=== PATIENT | male | born 1965 | race African-American/Black ===

== ENCOUNTER 2018-02-05 06:21 | Inpatient (IN) | payer OTHER, MEDICAID ==
[~2018-02-05] VITALS: Ht 180.3 cm; Wt 79.4 kg
--- NOTE | ~2018-02-05 | PROC ---
[address] [address] PROCEDURE REPORT Name: WESLY ARMANDO Room: [address] IN M.R.#: [id number] Admission: 02/05/18 Attend Phys: Derrick Gonzales MD Discharge: Date of : 63 Report #: [id number] THIS REPORT FOR: //name// For GI report, please see the Provation report in Perceptive 7 content. By: 06Medical Records Staff GÓMEZ /AKIN
--- NOTE | ~2018-02-05 | PROC ---
[address] [address] PROCEDURE REPORT Name: WESLY ARMANDO Room: [address] IN .R.#: [id number] Admission: 02/05/18 Attend Phys: Derrick Gonzales MD Discharge: 02/07/18 Date of : 63 Report #: [id number] THIS REPORT FOR: //name// For GI report, see the Provation report in Perceptive 7 content. By: 1358Medical Records Staff GÓMEZ /AKIN
[~2018-02-05 06:21] MED LIST: ASPIR 8181 M1 PO; ATIVAN0.5 MG; ATIVAN0.5 MG PO; BENICAR20 MG PO; CLEOCIN HCL300 MG PO; COLACE100 MG PO; CYMBALTA30 MG PO; CYPROHEPTADINE 44 MG PO; DILAUDID 2 MG TA2 MG; DILAUDID 2 MG TA2 MG PO; DILAUDID 4 MG TA4 M1 PO; DIPHENHIST50 MG PO; FENTANYL 1100 MCG/HR TP; FENTANYL1 EAC1; FOLIC ACID1 MG PO; MINIPRESS2 MG PO; NORCO 5-325 TA1 EACH PO; PERCOCET 10-321 EAC1 PO; PHENERGAN 25 MG25 M1 PO; PHENERGAN25 M1 RC; PRAZOSIN 1 MG CA1 M1 PO; PROTONIX40 M2 PO; REMERON 30 MG T30 M1 PO; REMERON15 MG PO; SEROQUEL 100 M100 M1 PO; SEROQUEL 50 MG50 MG PO; TRAZODONE HCL100 MG PO; TYLENOL325 MG PO; ULTRAM 50MG TAB50 MG PO; VALIUM5 MG PO; VENLAFAXINE HCL75 MG PO
[2018-02-05 06:24] VITALS: BP 130/89
[2018-02-05] MEDS ORDERED: DILAUDID 2 MG TA2 MG PO (06:29)
[2018-02-05] MEDS ORDERED: BENADRYL25 MG PO (06:29)
[2018-02-05] MEDS ORDERED: ASPIRIN325 (06:29)
[2018-02-05] MEDS ORDERED: PHENERGAN 25 MG25 M1 PO (06:30)
[2018-02-05] MEDS ORDERED: MELATONIN1 MG PO (06:31)
[2018-02-05] MEDS ORDERED: PAXIL10 MG PO (06:31)
[2018-02-05 07:17] LABS: ABSOLUTE BASOPHILS 0.1 thou/uL (0.0-0.2); ABSOLUTE EOSINOPHILS 0.2 thou/uL (0.0-0.7); ABSOLUTE LYMPHOCYTES 1.1 thou/uL (0.8-5.3); ABSOLUTE MONOCYTES 0.5 thou/uL (0.0-1.2); ABSOLUTE NEUTROPHILS 4.3 thou/uL (1.6-8.1); BASOPHILS 1.2 %; HEMATOCRIT 30.8 % (42.0-52.0); HEMOGLOBIN 10.4 gm/dL (14.0-18.0); LYMPHOCYTES 18.3 %; MCH 28.3 pg (26.0-34.0); MCHC 33.7 g/dL (28.0-37.0); MCV 83.8 fL (80.0-100.0); MONOCYTES 7.6 %; MPV 8.4 fl. (7.2-11.1); NUCLEATED RBCS 0 /100WBC; PLATELET COUNT* 166 thou/uL (150-400); POLYS 68.9 %; RBC 3.67 mil/uL (4.50-6.00); RDW-CV 17.2 % (10.5-14.5); WBC 6.2 thou/uL (4.0-11.0)
[2018-02-05 07:25] LABS: ANION GAP 9 mmol/L (7-16); BUN 26 mg/dL (7-18); CALCIUM 9.1 mg/dL (8.5-10.1); CHLORIDE 106 mmol/L (98-107); CO2 27 mmol/L (21-32); CREATININE 0.9 mg/dL (0.6-1.3); GLUCOSE 103 mg/dL (70-99); POTASSIUM 3.2 mmol/L (3.5-5.1); SODIUM 142 mmol/L (136-145)
[2018-02-05 07:26] LABS: APTT 27.5 Seconds (25.0-31.3)
[2018-02-05 07:45] LABS: ALBUMIN 3.7 g/dL (3.4-5.0); ALKALINE PHOSPHATASE 62 U/L (46-116); CK-MB MASS < 0.5 ng/mL (<0.5-3.6); LIPASE 193 U/L (73-393); NT-PRO BRAIN NAT PEPTIDE 26 pg/mL (<300); SGOT 11 U/L (15-37); SGPT 17 U/L (30-65); TOTAL BILIRUBIN 0.3 mg/dL (<0.1-1.0); TOTAL PROTEIN 7.7 g/dL (6.4-8.2); TROPONIN-I LEVEL <0.06 ng/mL (<0.06)
[2018-02-05 08:41] VITALS: BP 127/89
[2018-02-05 11:15] LABS: URINE BILIRUBIN NEGATIVE (Negative); URINE BLOOD NEGATIVE (Negative); URINE CLARITY CLEAR; URINE COLOR YELLOW; URINE GLUCOSE-RANDOM NEGATIVE (Negative); URINE KETONES NEGATIVE (Negative); URINE LEUKOCYTES-REFLEX NEGATIVE (Negative); URINE NITRITE-REFLEX NEGATIVE (Negative); URINE PROTEIN NEGATIVE (Negative); URINE SPECIFIC GRAVITY 1.025 (1.005-1.030)
[2018-02-05 11:22] LABS: AMP/METHAMP Negative (Negative); BARBITURATES Negative (Negative); BENZODIAZEPINES Negative (Negative); COCAINE Negative (Negative); METHADONE Negative (Negative); OPIATES POSITIVE (Negative); PCP Negative (Negative); THC POSITIVE (Negative)
[2018-02-05 12:41] LABS: % SATURATION 18 % (20-39); IRON 75 ug/dL (50-175)
--- NOTE | 2018-02-05 13:04 | NUR ---
VSS, ASSUMED CARE OF PT FROM ER, ASSESSMENT PERFORMED AND CHARTED, FALL PRECAUTIONS IN PLACE AND CALL LIGHT IN REACH. PT IS A&O4 AND ON RA AND TRACING ST ON THE MONITOR, PT STATES PAIN IN LEGS, HAS G TUBE IN ABDOMINE, PT IS UP WITH ONE AND CANE, WILL FOLLOW WITH PLAN OF CARE. ,
--- NOTE | 2018-02-05 13:07 | 2DMMODE ---
[place] [address] 2 D/M-MODE ECHOCARDIOGRAM Name: WESLY ARMANDO Room: [address] IN [facility]#: [id number] Admission: 02/05/18 Attend Phys: Derrick Gonzales, Discharge: Date of : 63 Date of Service: 02/05/18 1307 Report #: [id number] THIS REPORT FOR: //name// APPROVED REPORT Study performed: 02/05/2018 11:21:07 EXAM: Comprehensive 2D, Doppler, and color-flow Echocardiogram Patient Location: In-Patient Room #: [facility] Status: routine BSA: 2.02 HR: 80 bpm BP: 127/89 mmHg Rhythm: NSR Other Information Study Quality: Good Indications Dyspnea 2D Dimensions LVEF(%): 74.41 (>50%) IVSd: 11.45 (7-11mm) LVOT Diam: 22.48 (18-24mm) LVDd: 40.29 mm PWd: 9.10 (7-11mm) Ascending Ao: 31.73 (22-36mm) LVDs: 23.05 (25-40mm) Aortic Root: 31.75 mm Magaña's LVEF: 74.41 % Volumes Left Atrial Volume (Systole) LA ESV Index: 12.60 mL/m2 Aortic Valve AoV Peak Kalin.: 1.14 m/s AO Peak Gr.: 5.22 mmHg LVOT Max P.23 mmHg AO Mean Gr.: 2.80 mmHg LVOT Mean P.09 mmHg LVOT Max V: 1.03 m/s AO V2 VTI: 19.38 cm LVOT Mean V: 0.66 m/s MADISYN (VTI): 3.60 cm2 LVOT V1 VTI: 17.58 cm Mitral Valve E/A Ratio: 1.12 [place] [address] 2 D/M-MODE ECHOCARDIOGRAM Name: WESLY ARMANDO Room: [address] IN .R.#: [id number] Admission: 02/05/18 Attend Phys: Derrick Gonzales, Discharge: Date of : 63 Date of Service: 02/05/18 1307 Report #: [id number] MV Decel. Time: 271.16 ms MV E Max Kalin.: 0.68 m/s MV PHT: 78.64 ms MVA (PHT): 2.80 cm2 TDI E/Lateral E': 4.86 E/Medial E': 6.18 Medial E' Kalin.: 0.11 m/s Lateral E' Kalin.: 0.14 m/s Pulmonary Valve PV Peak Kalin.: 1.00 m/s PV Peak Gr.: 4.02 mmHg Tricuspid Valve TR Peak Gr.: 20.67 mmHg RVSP: 25.00 mmHg Left Ventricle The left ventricle is normal size. There is normal LV segmental wall motion. There is normal left ventricular wall thickness. Left ventricular systolic function is normal. The left ventricular ejection fraction is within the normal range. LVEF is 60%. The left ventricular diastolic function is normal. Right Ventricle The right ventricle is normal size. The right ventricular systolic function is normal. Atria The left atrium size is normal. The right atrium size is normal. Aortic Valve The aortic valve is normal in structure. No aortic regurgitation is present. There is no aortic valvular stenosis. Mitral Valve The mitral valve is normal in structure. There is no mitral valve regurgitation noted. No evidence of mitral valve stenosis. Tricuspid Valve The tricuspid valve is normal in structure. Trace tricuspid regurgitation. The RVSP is ___25____ mmHg. Mild tricuspid regurgitation. Pulmonic Valve The pulmonary valve is normal in structure. [place] [address] 2 D/M-MODE ECHOCARDIOGRAM Name: WESLY ARMANDO Room: [address] IN M.R.#: [id number] Admission: 02/05/18 Attend Phys: Derrick Gonzales, Discharge: Date of : 63 Date of Service: 02/05/18 1307 Report #: [id number] valvular regurgitation. Great Vessels The aortic root is normal in size. IVC is normal in size and collapses with >50% inspiration Pericardium There is no pericardial effusion. <Conclusion> The left ventricle is normal size. There is normal left ventricular wall thickness. Left ventricular systolic function is normal. The left ventricular ejection fraction is within the normal range. LVEF is 60%. The left ventricular diastolic function is normal. The right ventricle is normal size. The left atrium size is normal. The aortic valve is normal in structure. The mitral valve is normal in structure. The tricuspid valve is normal in structure. The RVSP is ___25____ mmHg. Mild tricuspid regurgitation. IVC is normal in size and collapses with >50% inspiration There is no pericardial effusion. There is normal LV segmental wall motion. <ELECTRONICALLY SIGNED> By: Yandel Padron MD, FACC 02/05/18 1307 1307 130 Yandel Padron MD, FACC /INF
[2018-02-05 15:54] VITALS: BP 107/70
--- NOTE | 2018-02-05 16:18 | EKG ---
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 : 1965 Requested By: Agustin Navarrete Order Number: [id number] MD: Yandel Padron Measurements Intervals [place] Rate: 116 P: 0 UT: 156 QRS: 40 QRSD: 100 T: 48 QT: 340 QTc: 473 Interpretive Statements Sinus tachycardia Borderline repolarization abnormality Artifact in lead(s) II,III,aVF,V1,V2,V3,V4,V5,V6 No previous ECG available for comparison Electronically Signed On 02-05-2018 16:18:05 CDT by Yandel Padron [email or web address] <ELECTRONICALLY SIGNED> By: Yandel Padron MD, [facility] 02/05/18 1618 7 7 Yandel Padron MD, [facility] /EPI
--- NOTE | 2018-02-05 18:02 | NUR ---
VSS, PT IS PROGRESSING TOWARDS GOAL, PT IS UP WITH ONE AND IS TRACING SR ON THE MONITOR ON RA AND A&O4, PT HAS PAIN IN LEGS AND IS 6 ON 0-10 SCALE, WILL FOLLOW WITH PLAN OF CARE, HOURLY ROUNDS COMPLETED.
[2018-02-05 20:00] VITALS: BP 103/40
[2018-02-06] VITALS (9 sets, daily range): BP systolic 98–129; BP diastolic 55–91
--- NOTE | 2018-02-06 01:12 | NUR ---
PATIENT HAS RECEIVED IV FENTANYL AT 2000 AND 2300 ORDERED, EVERY 3 HOURS. BOTH TIMES PATIENT CALLED OUT AN HOUR BEFORE NEXT DOSE DUE. OFFERED DILAUDID WITH BENADRYL BOTH PATIENT REFUSES. ASKED CHARGE NURSE TO ENCOURAGE PATIENT TO TAKE DILAUDID PO UNTIL NEXT DOSE OF FENTANYL, WHEN SHE APPROACH PATIENT IN ROOM HE WAS SLEEPING. WILL CONT. TO MONITOR.
[2018-02-06 05:29] LABS: HEMATOCRIT 27.3 % (42.0-52.0); HEMOGLOBIN 9.3 gm/dL (14.0-18.0); MCH 28.8 pg (26.0-34.0); MCHC 34.2 g/dL (28.0-37.0); MCV 84.1 fL (80.0-100.0); RBC 3.24 mil/uL (4.50-6.00); RDW-CV 17.5 % (10.5-14.5); WBC 3.7 thou/uL (4.0-11.0)
[2018-02-06 05:34] LABS: CALCIUM 8.1 mg/dL (8.5-10.1); CREATININE 0.6 mg/dL (0.6-1.3); POTASSIUM 3.4 mmol/L (3.5-5.1)
--- NOTE | 2018-02-06 09:24 | NUR ---
ASSUMED CARE OF PT THIS AM AROUND 0715- FACING MACHINE OPERATOR IN PLACE ORDERED, TRACING SR- UPON ASSESSMENT PT NOTED TO BE RESTING IN BED, EYES CLOSED- PT A&O X4- CONTINENT OF BOWEL AND BLADDER- LIMITED/SBA WITH TRANSFERS FOR SAFETY- LCTA, RESP EVEN AND UN-LABORED- VSS, O2 SAT 99% ON RA- ABDOMEN SOFT/FLAT/NON-TENDER, BS X4 QUADS- J-TUBE NOTED WITH BINDER IN PLACE-LAST BM REPORTED 02/05/18- PORT O CATH NOTED TO LEFT UPPER MID CHEST, IVF INFUSING ORDERED- K+ NOTED TO BE 3.4 THIS AM, 1ST DOSE PER REPLACEMENT GIVEN THIS AM AT 0825 WITH SECOND DOSE TO FOLLOW- PT COMPLAINS OF PAIN 8/10 GENERALIZED, PRN FENT GIVEN THIS AM AT 0819, PT REPORTS MEDICATION TO NOT BE EFFECTIVE- RELAXATION, QUIET ENVIRONMENT AND DEEP BREATHING ENCOURAGED- PT CURRENLTY NPO FOR PLANNED EGD THIS AM KWITH J-TUBE REMOVAL- PT UPDATED ON PLANS WITH CONCEKNT OBTAINED FOR PROCEDURE THIS AM- ASPIRIN HELD THIS AM FOR PLANNED PROCEDURE- CALL LIGHT AND PERSOANL BELONGINGS WITH IN REACH- HOURLY ROUNDS IN PLACE R/T SAFETY/NEEDS- ALL NEEDS MET AT THIS TIME-WCTM
--- NOTE | 2018-02-06 14:18 | NUR ---
CM SPOKE TO THE PATIENT TO DISCUSS HOME SITUATION, DISCHARGE PLANNING, AND TO INFORM OF THE ROLE OF CM. PATIENT ALERT, ORIENTED, AND INDEPENDENT WITH ADL'S. PATIENT RESIDES AT HOME WITH DTR. PATIENT OWNS 0 DME. PATIENT HAS NO HX OF HH OR SNF, AND PLANS TO RETURN HOME AT D/C. CM WILL REMAIN AVAILABLE TO ASSIST AND FOLLOW NEEDED.
--- NOTE | 2018-02-06 17:53 | NUR ---
PATIENT PARTIALLY PROGRESSING TOWARDS GOALS. HE CONTINUES TO DENY ANY SOA. IVF INFUSING. HE COMPLAINS OF 'ALL OVER' PAIN THAT HE GETS PARTIAL PAIN RELIEF FROM WITH IS SCHEDULED AND PRN PAIN MEDICATION. PATIENT RETURNED TO ROOM POST EGD AND ASKED FOR IV PAIN MEDICATION. PACU REPORTED PATIENT RECEIVED IV FENTANYL 45 MIN PRIOR TO RETURNING TO THE FLOOR. EXPLAINED TO PATIENT WE COULD DO ORAL DILAUDID FIRST TO SEE IF THAT WOULD HELP CONTROL THE PAIN AND REEVALUATE AFTER THE REASSESSMENT. PATIENT WAS INITIALLY UPSET WHEN HE COULD NOT GET IV FENTANYL UPON RETURNING TO HIS ROOM AND ARGUED WITH HIS NURSE QUOC UNTIL HE REQUESTED A NEW RN AND ASKED THAT SHE NOT RETURN TO HIS ROOM. IVF INFUSING. TOLERATING HIS DIET WELL WITHOUT NAUSEA OR VOMITING. PATIENT CONTENT AT THIS TIME BUT IS ASKING WHEN HIS NEXT DOSE OF PAIN MEDICATION IS 'DUE'. PATIENT VOIDING CLEAR YELLOW URINE PER URINAL. HOURLY ROUNDING CHARTED. CALL LIGHT WITHIN REACH. WILL CONTINUE TO MONITOR.
--- NOTE | 2018-02-06 17:56 | NUR ---
PT RETURNED FROM PACU POST EGD VIA W/C AT 1345- VS 98.9 18 125/84 66 100% ON RA- PT REPORTED TO HAVE RECIVED BETWEEN 1240 AND 1300 A TOTAL OF 100 OPF FENT IN POST OP- PT REQUEST MORE DENT UPON RETURNING- PT EDUCATED ON PHYSICIANS RECOMMENDATION OF USING HOME DILAUDID WITH ONLY FENT FOR BREAKTHROUGH PAIN PHYSICAIN HAD EDUCATED HIM ABOUT IN AM- PT BECAME VERY ARGUMENATIVE, AND WOULD NOT LISTEN TO TEACHING- PT STATES "I MIGHT WELL LEAVE IF YOU NOT GOING TO TAKE CARE OF ME"- PT EDUCATED THAT IT WAS NOT TIME FOR FENT DUE TO JUST RECIEVING AND FENT IN PACU- PT STATES "I AM DONE TALKING TO YOU'- NOTIFIED OF PT RESITMENT AND WANTING FENT WITHOUT TRYING DILAUDID- INSTRUCTIONS GIVEN FOR PT TO TRY PO DILAUID BEFORE FENT AGAIN WITH NO CAHNGES TO BE MADE- PT EDUCATED ON PHYSICIANS UPDATE- PT STILL RESITANT TO TEACHING AND REFUSED TO ALLOW THIS NURSE TO GIVE ANY FURTHER MEDICATIONS- PT STATES "I AM NOT TAKING ANYTHING FROM YOU"- AT THIS POINT ANOTHER NURSE ASSIGNED TO PT CARE- [facility]
[2018-02-07] VITALS (7 sets, daily range): BP systolic 99–123; BP diastolic 64–85
--- NOTE | 2018-02-07 02:14 | NUR ---
TOOK PT INTO CARE AT 1930. PT ABLE TO MAKE NEEDS KNOWN, WATCHING CLOCK, CALLING OUT FOR PAIN MEDS. CAME IN WITH SICKLE CELL CRISIS. ASSESSMENT COMPLETED CHARTED. C/O PAIN 7-9 THROUGHOUT THE NIGHT. PORTACATH ON LEFT SIDE OF CHEST RUNNING AT 150ML/HR NS. PT WATCHING TV AND FALLING IN AND OUT OF SLEEP. WILL CONTINUE WITH PLAN OF CARE.
[2018-02-07 05:05] LABS: HEMOGLOBIN 9.3 gm/dL (14.0-18.0)
[2018-02-07] MEDS ORDERED: ADULT LOW DOSE81 MG PO (08:50)
[2018-02-07] MEDS ORDERED: PANTOPRAZOLE SO40 M1 PO (08:50)
--- NOTE | 2018-02-07 11:04 | NUR ---
Consult received to schedule PCP and pain mgmt appt. MARK scheduled a PCP appt for March 10 at 9:[address] Tammy Coker at [facility], CM updated Pt's dc summary. CM contacted [facility] re: pain mgmt appt, clinic requested that CM fax clinical info, Drs will review and contact Pt if they determine that he needs to be seen, MARK faxed records from this hospital stay and from [facility], p:[phone] f:[phone], updated nurse.
--- NOTE | 2018-02-07 15:00 | NUR ---
VSS, ASSUMED CARE IN THE AM, ASSESSMENT PERFORMED AND CHARTED, FALL PRECAUTIONS IN PLACE AND CALL LIGHT IN REACH, PT IS A&O4 AND ON RA AND STATES PAIN IN ABDOMIN, PT GOAL IS TO D/C J-TUBE AND D/C HOME. WILL FOLLOW WITH PLAN OF CARE AND HORLY ROUNDS. PT IS RA AND TRACING SR ON MONITOR, AND UP WITH ONE AND CANE AT THIS TIME 1723, I HAVE RECIEVED D/C ORDERS, PT HAD J-TUBE PULLED AND IS TO D/C TONIGHT, PT HAS LEFT CHEST PORT CATH AND WILL NEED TO BE D/C AT D/C. HOURLY ROUNDS COMPLETED, AND REPORT GIVEN TO RN
--- NOTE | 2018-02-07 15:04 | S ---
[place] [address] SURGICAL PATH RPT PROCEDURE Name: WESLY ARMANDO Room: [address] IN ..#: [id number] Admission: 02/05/18 Date of : 63 Discharge: Report #: [id number] Path Case #: [id number] PATHOLOGY REPORT COLLECTION DATE: 02/06/2018 RECEIVED DATE: 02/06/2018 SUBMITTING PHYS: Dr. Malik Stephens OTHER PHYS: Dr. 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 (PATRIC:meet; 02/07/2018) COMMENT: Special Stain: H. pylori immuno PATHOLOGIST: Charles Polanco M.D. REPORT ELECTRONICALLY SIGNED BY: Charles Polanco M.D. DATE/TIME: 02/07/2018 15:03 * * * * * * * * * * * * GROSS PATHOLOGY: Received in formalin labeled "Wesly Armando, antrum BX," are 3 segments of thompson soft tissue measuring 0.6 x 0.8 x 0.2 cm in aggregate dimensions and ranging from 0.3 to 0.6 cm in maximum dimension. The specimen is submitted entirely in cassette A1. (TSD; 02/06/2018) CLINICAL HISTORY: None provided INITIAL CPT CODE(S): A; 95494, 33419 Professional services performed by [facility] at [facility] [address] [place] [address] Technical services performed by [facility] at [address] [place] [address].[place] [address] SURGICAL PATH RPT PROCEDURE Name: WESLY ARMANDO Room: [address] IN ..#: [id number] Admission: 02/05/18 Date of : 63 Discharge: Report #: [id number] Path Case #: [id number] [place] [address]. [facility] [address] [address] PHONE: [phone] DIRECTOR: Justin Anderson M.D. * * * END OF REPORT * * *
--- NOTE | 2018-02-07 19:20 | NUR ---
PATIENT DCD TO HOME ALL DC INSTRUCTIONS GIVEN AND FOLLOWED AND SIGNED COPIES GIVEN IV/PORT L CHEST REMOVED AND OSCILLOGRAPH TECHNICIAN REMOVED PERSONAL BELONGINGS RETURNED ASSISTED OUT TO CAB WITH WC VOUCHER PROVIDER
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
--- NOTE | 2018-02-13 15:14 | CON ---
[address] [address] CONSULTATION Name: PRABHAWESLY S Room: [address] IN M.R.#: [id number] Admission: 02/05/18 Attend Phys: Derrick Gonzales MD Discharge: 02/07/18 Date of : 63 Report #: [id number] THIS REPORT FOR: //name// CC: Derrick Garcia ADDENDUM GASTROENTEROLOGY CONSULTATION REFERRING PHYSICIAN: Dr. Derrick Gonzales. The patient has no primary care provider I have seen and examined the patient and agree with the plans that have been outlined by our nurse practitioner, Chanda Mendez. Because of the patient's complaints of abdominal pain associated with nausea and vomiting, we will proceed with upper endoscopy tomorrow. In addition, since the J-tube is not being used and appears to be in good position within the jejunum, we will remove it at the time of the endoscopy. The patient states that he does not recall ever having a gastric emptying scan in the past and if he continues to have problems with persistent nausea and vomiting, he may need to have that done prior to discharge. HE IS ALLERGIC TO REGLAN, WHICH CAUSES HIVES, but he has other issues that can cause problems. This may be all related to chronic narcotic use, but we will await the results of endoscopy. I do not see anything worrisome on a CT scan. <ELECTRONICALLY SIGNED> By: Jose Bunn, 02/13/18 1514 0851 1422Jose Bunn DO /nt
== END 2018-02-07 19:24 | disposition home or self-care (01) | DRG 919 ==
LOC: M.ERS 06:21 → M.2W 08:15 → M.TBA-ER 08:15 → M.2W 08:48
PROVIDERS: Emergency Medicine; Family Medicine; Nurse Practitioner Adult Health; ADMIT Internal Medicine
PROC: 0DPDXUZ Removal of Feeding Device from Lower Intestinal Tract, External Approach (ICD-10-PCS; 2018-02-05)
PROC: 0DB68ZX Excision of Stomach, Via Natural or Artificial Opening Endoscopic, Diagnostic (ICD-10-PCS; principal; 2018-02-06)
DX: T85.848A Pain due to other internal prosthetic devices, implants and grafts, initial encounter (principal); D57.00 Hb-SS disease with crisis, unspecified; K29.71 Gastritis, unspecified, with bleeding; F11.20 Opioid dependence, uncomplicated; I25.10 Atherosclerotic heart disease of native coronary artery without angina pectoris; I11.0 Hypertensive heart disease with heart failure; G89.29 Other chronic pain; K44.9 Diaphragmatic hernia without obstruction or gangrene; K31.89 Other diseases of stomach and duodenum; Y83.8 Other surgical procedures as the cause of abnormal reaction of the patient, or of later complication, without mention of misadventure at the time of the procedure; F43.10 Post-traumatic stress disorder, unspecified; K31.84 Gastroparesis; E86.0 Dehydration; I50.9 Heart failure, unspecified; Z90.49 Acquired absence of other specified parts of digestive tract; Z88.8 Allergy status to other drugs, medicaments and biological substances; Z91.041 Radiographic dye allergy status; Z88.5 Allergy status to narcotic agent; Z91.013 Allergy to seafood; I25.2 Old myocardial infarction; Z79.82 Long term (current) use of aspirin; Z79.899 Other long term (current) drug therapy; Z80.3 Family history of malignant neoplasm of breast; Y92.89 Other specified places as the place of occurrence of the external cause

== ENCOUNTER 2018-02-20 06:39 | Emergency (ER) | payer OTHER, MEDICAID ==
[~2018-02-20] VITALS: Ht 180.3 cm; Wt 77.1 kg
[~2018-02-20 06:39] MED LIST changes: +ADULT LOW DOSE81 MG PO; +ASPIRIN325; +BENADRYL25 MG PO; +MELATONIN1 MG PO; +PANTOPRAZOLE SO40 M1 PO; +PAXIL10 MG PO
[2018-02-20 07:18] LABS: ABSOLUTE EOSINOPHILS 0.3 thou/uL (0.0-0.7); ABSOLUTE LYMPHOCYTES 1.1 thou/uL (0.8-5.3); ABSOLUTE MONOCYTES 0.4 thou/uL (0.0-1.2); ABSOLUTE NEUTROPHILS 3.8 thou/uL (1.6-8.1); BASOPHILS 0.8 %; EOSINOPHILS 5.8 %; HEMATOCRIT 35.1 % (42.0-52.0); HEMOGLOBIN 11.6 gm/dL (14.0-18.0); LYMPHOCYTES 18.9 %; MCH 28.4 pg (26.0-34.0); MCHC 33.1 g/dL (28.0-37.0); MCV 85.7 fL (80.0-100.0); MONOCYTES 7.1 %; MPV 8.7 fl. (7.2-11.1); NUCLEATED RBCS 0 /100WBC; PLATELET COUNT* 196 thou/uL (150-400); POLYS 67.4 %; RBC 4.09 mil/uL (4.50-6.00); RDW-CV 18.7 % (10.5-14.5); WBC 5.6 thou/uL (4.0-11.0)
[2018-02-20 07:24] LABS: ANION GAP 10 mmol/L (7-16); BUN 19 mg/dL (7-18); CALCIUM 9.1 mg/dL (8.5-10.1); CHLORIDE 108 mmol/L (98-107); CO2 23 mmol/L (21-32); CREATININE 0.8 mg/dL (0.6-1.3); GLUCOSE 117 mg/dL (70-99); POTASSIUM 3.5 mmol/L (3.5-5.1); SODIUM 141 mmol/L (136-145)
[2018-02-20 07:25] LABS: PROTIME 10.2 Seconds (9.20-11.50)
[2018-02-20 07:35] LABS: ALBUMIN 3.9 g/dL (3.4-5.0); ALKALINE PHOSPHATASE 61 U/L (46-116); LIPASE 101 U/L (73-393); NT-PRO BRAIN NAT PEPTIDE 17 pg/mL (<300); SGOT 14 U/L (15-37); SGPT 18 U/L (30-65); TOTAL BILIRUBIN 0.4 mg/dL (<0.1-1.0); TROPONIN-I LEVEL <0.06 ng/mL (<0.06)
[2018-02-20 08:12] VITALS: BP 113/85
--- NOTE | 2018-02-20 09:32 | EKG ---
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: MIKE : 1965 Requested By: Tori Ibanez Order Number: [id number] MD: Ryan Alicea Measurements Intervals [place] Rate: 117 P: 57 CT: 144 QRS: 20 QRSD: 88 T: 2 QT: 327 QTc: 457 Interpretive Statements Sinus tachycardia Probable left atrial enlargement Baseline wander in lead(s) V6 Compared to ECG 02/05/2018 06:28:14 No significant changes Electronically Signed On 02-20-2018 9:32:40 CDT by Ryan Alicea [email or web address] <ELECTRONICALLY SIGNED> By: Ryan Alicea MD, [facility] 02/20/18 0932 0646 0646 Ryan Alicea MD, FACC /EPI
== END 2018-02-20 08:38 | disposition home or self-care (01) ==
LOC: M.ERS 06:39
PROVIDERS: Emergency Medicine
DX: D57.1 Sickle-cell disease without crisis (principal); I25.10 Atherosclerotic heart disease of native coronary artery without angina pectoris; I11.0 Hypertensive heart disease with heart failure; I50.9 Heart failure, unspecified; F43.10 Post-traumatic stress disorder, unspecified; Z90.49 Acquired absence of other specified parts of digestive tract; Z86.14 Personal history of Methicillin resistant Staphylococcus aureus infection; Z91.041 Radiographic dye allergy status; Z88.6 Allergy status to analgesic agent; Z88.5 Allergy status to narcotic agent; Z91.013 Allergy to seafood; Z88.8 Allergy status to other drugs, medicaments and biological substances